=== PATIENT | male | born 1955 | race Caucasian/White ===

== ENCOUNTER → 2021-04-01 09:11 | Outpatient (CLI) | payer OTHER, SELFPAY ==
--- NOTE | 2021-04-01 | DI.MRI.S_ITS ---
PROCEDURE: MR KNEE LT WO CON INDICATIONS: Unilateral primary osteoarthritis, left knee TECHNIQUE: Noncontrast sagittal PD fast spin echo and T2 fast spin echo with fat saturation, sagittal 3-D FLASH with fat saturation; coronal T1 spin echo and PD fast spin echo with fat saturation, and axial PD fast spin echo with fat saturation through the knee. COMPARISON: None. FINDINGS: Image quality: Excellent. Menisci: Peripheral displacement of medial meniscus is seen bowing medial collateral ligament. Complex tear involving body and posterior horn of medial meniscus is noted extending to both superior and inferior articulating surfaces. There is no evidence of focal lateral meniscal tear. The meniscal root ligaments appear intact. Cruciate ligaments: The anterior and posterior cruciate ligaments appear intact. Medial structures: Moderate grade partial-thickness tear involving medial collateral ligament is seen. The posterior oblique ligament, semimembranosus tendon insertions, oblique popliteal ligament, and meniscocapsular junction appear intact. Visualized portions of the pes anserinus tendons appear normal. No abnormal bursal fluid. Lateral structures: The lateral collateral ligament, long and short heads of the biceps femoris tendon appear intact. The popliteus tendon appears normal; the popliteofibular ligament appears intact. The posterosuperior and anteroinferior popliteomeniscal fascicles appear intact. The arcuate and fabellofibular ligaments appear intact, on either side of the lateral inferior geniculate artery. Iliotibial band appears normal. Anterior structures: Nonspecific soft tissue edema and swelling along anterior aspect of patella and patella tendon is noted. The quadriceps and patellar tendons appear intact. Patellar alignment is normal. No femoral trochlear dysplasia or ventral trochlear prominence. No edema in the infrapatellar fat pad. Bones and cartilage: Moderate to severe medial femoral tibial compartment osteoarthritis and chondromalacia is noted with marrow edema seen in medial femoral condyle and adjacent medial tibial plateau. Mild chondromalacia and osteoarthritis in lateral femoral tibial compartment is seen. Nonspecific marrow edema involving weight-bearing portion of lateral femoral condyle is seen without discrete fracture line. Patellar cartilage is intact. Joint space: There is moderate to large joint effusion, no gross intra-articular loose body. There is a popliteal cyst and measures 2.1 x 2.2 x 3.7 cm in size. Normal appearing synovial plicae are incidentally noted. IMPRESSION: 1. Moderate to severe medial femoral tibial compartment osteoarthritis and chondromalacia with bony contusion involving medial femoral condyle weight-bearing portion and adjacent medial tibial plateau. Nonspecific bony contusion also seen involving weight-bearing portion of lateral femoral condyle. Mild to moderate lateral femoral tibial compartment osteoarthritis and chondromalacia is seen. 2. Moderate to large joint effusion and popliteal cyst as above. No gross intra-articular loose body. 3. Suggestion of complex tear involving body and posterior horn of medial meniscus extending to both superior and inferior articulating surfaces. No focal lateral meniscal tear. 4. Cruciate ligaments are intact. Moderate grade partial-thickness tear involving medial collateral ligament. Nonspecific soft tissue swelling and edema along anterior aspect of left knee. Dictated by: Rudolph Vivas M.D. on 04/01/2021 at 10:30 Approved by: Rudolph Vivas M.D. on 04/01/2021 at 10:34
== END ==
PROVIDERS: PCP Internal Medicine; Referring Provider Orthopaedic Surgery; Visit Provider Orthopaedic Surgery
DX: M17.12 Unilateral primary osteoarthritis, left knee (principal); S83.232A Complex tear of medial meniscus, current injury, left knee, initial encounter; M94.262 Chondromalacia, left knee; M25.462 Effusion, left knee; M71.22 Synovial cyst of popliteal space [Baker], left knee; S83.412A Sprain of medial collateral ligament of left knee, initial encounter
CPT/HCPCS: 73721

== ENCOUNTER → 2021-07-25 13:52 | Outpatient (CLI) | payer MEDICARE, SELFPAY ==
--- NOTE | 2021-07-25 | DI.ECHO.S_ITS ---
[place] +---------+ Hospital +---------+ : : [address] : : : : [id number] : : : : Phone: [phone]+ Echocardiogram Report + + :Name: KENNY CHINO Study Date: 07/25/2021 Height: 72 in : :[facility] ReadingLocation: Weight: 205 lb : : Gender: Male BSA: 2.2 m2 : :: 1955 Age: 65 yrs BP: 152/92 mmHg: :Reason For Study: NEW LEFT BUNDLE BRANCH BLOCK : :Ordering Physician: PERNELL, : :VENU Allen Performed By: Rosana Rob : :Referring: VENU GIMENEZ : + + Interpretation Summary Normal sinus rhythm with wide QRS complexes. Normal LV size, wall thickness, wall motion and left ventricular systolic function. Ejection fraction is 55-60%. Normal chamber sizes. Aortic sclerosis without stenosis. No prior study available for comparison. Procedure: A two-dimensional transthoracic echocardiogram with color flow and Doppler was performed. The study quality was technically adequate. There is no prior echocardiogram noted for this patient. The patient was in sinus rhythm with heart rates between 56-74 bpm during the exam. The patient had a bundle branch block rhythm during the exam. Left Ventricle: The left ventricle is normal in size and wall thickness. The ejection fraction is estimated to be 55-60%. Right Ventricle: The right ventricle is normal in size and function. Atria: The left atrial size is normal. Right atrial size is normal. There is no Doppler evidence for an interatrial shunt. Mitral Valve: The mitral valve leaflets are slightly calcified. There is mild mitral regurgitation. Aortic Valve: The aortic valve is trileaflet. There is mild aortic valve sclerosis. The aortic valve opens well. There is no aortic valve stenosis. No aortic regurgitation is present. Tricuspid Valve: The tricuspid valve is normal in structure and function. There is trace tricuspid regurgitation. The right ventricular systolic pressure is estimated to be at least 26 mmHg based on an estimated right atrial pressure of 3 mm Hg. Pulmonic Valve: The pulmonic valve leaflets are thin and pliable; valve motion is normal. There is no pulmonic valvular regurgitation. Great Vessels: The aortic root is normal size. The ascending aorta could not be visualized. The IVC is of normal diameter and collapses greater than 50% with a sniff. This suggests a low right atrial pressure of 3 mm Hg. Pericardium/ Pleura There is no pericardial effusion. There is no pleural effusion. MMode/2D Measurements & Calculations LVIDd: 5.2 cm LVOT diam: 2.1 cm LVIDs: 3.7 cm Ao root diam: 3.7 cm FS: 28.1 % Ao Arch Diam (Prox Trans): 2.8 cm IVSd: 0.86 cm LVPWd: 0.72 cm LV horowitz. diameter/BSA (cm/m^2): 2.4 LV sys. diameter/BSA (cm/m^2): 1.7 LA A2 area: 19.3 cm2 RA long axis: 4.5 cm LA A4 area: 13.6 cm2 RA area: 16.5 cm2 LA length (vol): 5.0 cm RA vol: 51.7 ml LA vol: 44.3 ml RA : 24.0 ml/m2 LA vol index: 20.6 ml/m2 IVC diam: 1.6 cm RVD1 (basal): 3.7 cm RVD2 (mid): 3.3 cm TAPSE: 3.0 cm Doppler Measurements & Calculations Ao V2 max: 137.5 cm/sec LVOT Max Luis: 100.3 cm/sec Ao V2 mean: 102.0 cm/sec LV V1 max P.0 mmHg Ao max P.6 mmHg LV V1 VTI: 21.9 cm Ao mean P.5 mmHg PAVEL(I,D): 2.5 cm2 Ao V2 VTI: 31.8 cm PAVEL(V,D): 2.6 cm2 sev ratio: 0.69 PAVEL indexed to BSA (cm^2/m^2): 1.1 MV E max luis: 60.3 cm/sec TR max luis: 241.1 cm/sec MV A max luis: 44.9 cm/sec TR max P.3 mmHg MV E/A: 1.3 PA V2 max: 117.4 cm/sec Med Peak E' Luis: 8.0 cm/sec PA V2 mean: 73.1 cm/sec E/E' med: 7.6 PA mean P.5 mmHg Lat Peak E' Luis: 8.1 cm/sec PA pr(Accel): 39.6 mmHg E/E' lat: 7.4 E/e' average: 7.5 MV dec time: 0.22 sec SV(LVOT): 78.1 ml Electronically signed by: Marimar Oneill M.D. on Reading Physician:07/25/2021 07:44 PM
== END ==
PROVIDERS: PCP Internal Medicine; Referring Provider Internal Medicine; Visit Provider Internal Medicine
DX: I08.0 Rheumatic disorders of both mitral and aortic valves (principal); I44.7 Left bundle-branch block, unspecified
CPT/HCPCS: 93306

== ENCOUNTER → 2021-09-04 15:19 | Outpatient (CLI) | payer MEDICARE, SELFPAY ==
[2021-09-04 16:36] LABS: COVID19 -Nasal RAPID Negative (Negative)
== END ==
PROVIDERS: PCP Internal Medicine; Visit Provider Nurse Practitioner Family
DX: Z20.822 Contact with and (suspected) exposure to COVID-19 (principal)
CPT/HCPCS: 87635; C9803

== ENCOUNTER 2021-09-05 06:25 | Day surgery (SDC) | payer MEDICARE, SELFPAY ==
[2021-08-22 08:39] VITALS: BMI 28.5
[2021-09-05] VITALS (12 sets, daily range): BP systolic 108–145; BP diastolic 58–92; PULSE 62–88; RESP 11–16; TEMP 35.6–36.6; O2SAT 92–98; BMI 28.5
[2021-09-05] MEDS: ACETAMINOPHEN 325 MG TABLET 975 MG PO (06:47)
[2021-09-05] MEDS: CELECOXIB 200 MG CAPSULE PO (06:48)
[2021-09-05] MEDS: VANCOMYCIN 1,000 MG/200 ML PIGGYBACK 200 MG IV (06:48)
[2021-09-05] MEDS: LACTATED RINGERS 1,000 ML 42 ML IV ×2 (07:21→10:15)
--- NOTE | 2021-09-05 07:44 | PM.PREOP ---
Pre-operative Note COVID-19 COVID-19 status: Negative Interval Note History & Physical reviewed/Exam performed by Physician: Yes Changes to H&P: No
--- NOTE | 2021-09-05 08:00 | DI.RAD.S_ITS ---
PROCEDURE: XR KNEE LT 1TO2V INDICATIONS: prosthesis placement TECHNIQUE: 2 view(s) of the knee acquired. COMPARISON: None. FINDINGS: Bones: Patient is status post knee joint arthroplasty. Hardware components are in expected positions. Visualized bony structures are intact. Soft tissues: Overlying postoperative changes are noted. IMPRESSION: Postop changes from left total knee arthroplasty with anatomic left knee alignment. Dictated by: Rudolph Vivas M.D. on 09/05/2021 at 11:09 Approved by: Rudolph Vivas M.D. on 09/05/2021 at 11:09
[2021-09-05] MEDS: CEFAZOLIN 2 GM/20 ML SYRINGE IV ×3 (08:10→23:34)
[2021-09-05] MEDS: TRANEXAMIC ACID 1,000 MG VIAL 1000 MG INJ ×2 (08:15→09:57)
--- NOTE | 2021-09-05 08:24 | SUR.OPER ---
Supine on padded OR bed. Pillow under head, arms secured on padded armboards <90 degree abduction. Safety belt across torso. Non-operative leg secured with tape over blanket over lower leg. Operative leg secured in De[employer]o positioner. Foam padded brace at thigh of operative leg.
[2021-09-05] MEDS: BUPIVACAINE 0.25% (PF) 60 ML, EPINEPHrine 0.3 MG INJ (08:34)
[2021-09-05] MEDS: BUPIVACAINE LIPOSOME 266 MG/20 ML VIAL INJ (09:52)
--- NOTE | 2021-09-05 10:54 | PM.OP.1 ---
Operative Date/Time/Diagnoses Date of procedure: 09/05/21 Time of procedure: 08:00 Pre-op diagnosis: Severe left knee osteoarthritis Post-op diagnosis: same Procedure & Clinicians Procedure: Left total knee arthroplasty Same procedure as scheduled: Yes Indications: The patient has had progressively worsening left knee pain with radiographic changes consistent with arthritis. Non-operative management has failed and the patient has requested total knee replacement. The risks, benefits and alternatives to surgery were discussed with the patient prior to proceeding. Risks discussed included, but were not limited to, failure to relieve pain, stiffness, infection, nerve damage, deep venous thrombosis, pulmonary embolism, stroke, coma, heart attack, permanent paralysis and , as well as the potential need for eventual revision of the prosthetic. Surgeon: Anamaria Coles Warehouse Shift Supervisor: Poornima Akhtar Anesthesia Type: General and Spinal Operative Notes Findings: Severe left knee osteoarthritis, adequate stability Closure Type: primary Specimen(s): none sent Prosthetic devices, grafts, tissues, transplants, or devices: [employer] [facility] BCS 2 size 8 femur, size 6 tibia, +10 poly, 35 mm oval patella Estimated Blood Loss (mL): 250 Blood products transfused: none Tourniquet time (min): 93 Procedure in detail: The patient was seen in the pre-operative area, where the patient identified the left knee as the operative site and this was marked with my initials. The patient received pre-operative antibiotics, and was taken to the operating room and placed on the operative table in the supine position. After satisfactory anesthesia, a maritime guard out was performed. The left leg was encircled with a tourniquet about the proximal thigh, and the leg was prepared from the toes to the tourniquet with ChloroPrep in the usual fashion and draped through sterile drapes. The leg was elevated and exsanguinated with Eschmark bandage and the tourniquet inflated to [250] mmHg pressure. The knee was approached through an approximately 18 cm incision centered over the patella and carried into the knee through a medial parapatellar arthrotomy. A portion of the medial and lateral meniscus was resected. Soft tissue was carefully mobilized around the patella the patella was measured with a caliper. Bone was resected from the patella and the patellar height was reconstituted with up an appropriate sized patellar component. It was quite oval on an oval patella was selected. A cover was then placed on the patella. A small amount of additional medial and lateral meniscus was resected. The distal femur was cut at 5?. A [+2] cut was used. It looked like an appropriate distal femoral cut and the cut was made without difficulty. An extramedullary guide was used for the tibial cut. 10 mm was resected off the least affected side.The tibia was prepared. The rotation was assessed. The patient was placed in extension residual medial and lateral meniscus as well as any residual bone was carefully resected. [No] additional tibia was resected. Hemostasis was achieved especially posteriorly. Additional local was injected into the posterior capsule. The extension gap was assessed and additional releases for gap balancing were performed as necessary. It was checked with the gap wearing apparel shaker. The femoral component was trial was placed and the notch was finished. The rotation was assessed and the appropriate size femoral guide was placed on the distal femur and finishing cuts were made. There was no evidence of notching. The anterior, posterior and chamfer cuts were then made. The posterior osteophytes and soft tissues were then removed. The posterior capsule was injected with part of a mixture of 60 ml 0.25% Marcaine mixed with 20 ml Exparel for post operative pain control. The remainder of this mixture was injected into the capsule and subcutaneous tissues during cement curing. The tibial and femoral components were then placed and the knee placed through a range of motion. Range of motion was [0-130], with good stability throughout the range. The trials were then removed, and the tibia was finished. There was just slight tightness in the medial compartment in full extension. Used a 18 gauge spinal needle to partially release a portion of the medial collateral ligament. At that point good balance was achieved. The bone was prepared with pulsatile lavage, and dried with a sponge. Cement was applied and the final prosthetics placed. Excess cement was removed during and after cement curing. A brief Betadine soak was performed. After confirming there was no extruded cement posteriorly, the final tibial insert was placed. The knee was copiously irrigated and the tourniquet deflated. Hemostasis was obtained with the Bovie cautery. The capsule was closed with interrupted nonabsorbable suture. The subcutaneous layer was closed with barbed sutures, and the skin with a running 3-0 V-Lock suture and Surgical glue. An Aquacel Ag dressing was applied and the patient was taken to recovery having tolerated the procedure well. Complications: none Post-operative Condition: stable Disposition: Acute Care Plan for aftercare: The patient will be maintained on a standard total knee replacement protocol with weight bearing as tolerated. The patient will receive aspirin and sequential compression devices for DVT prophylaxis. The patient will be discharged home when safe for the home environment.
[2021-09-05] MEDS: LACTATED RINGERS 1,000 ML 100 ML IV ×2 (11:36→21:29)
[2021-09-05] MEDS: IBUPROFEN 400 MG TABLET PO ×3 (13:39→21:18)
--- NOTE | 2021-09-05 14:59 | PC.NURSE ---
attempted to void while standing up, patient started getting light headed, sweating, pale, BP 81/54, HR 65. Place pt back to bed in supine position, BP 102/60 HR 52. Bladder scan 800cc+. Notified Dr. Coles while she was in the patient's room. Verbal order to place coude catheter and leave it in.
--- NOTE | 2021-09-05 15:05 | PT.IPTN ---
Current Diagnoses Unilateral primary osteoarthritis, left knee (09/05/21) Surgery Performed Operation Date: 09/05/21 07:45 Actual Procedures p Total Knee Arthroplasty(Left) - Anamaria Coles MD Physical Therapy Treatment Note M3 PT-IP Subjective Start: 09/05/21 16:19 Freq: NEEDED Status: Active Protocol: Document 09/05/21 15:05 AB (Rec: 09/05/21 16:26 AB [id number]) Subjective Physical Therapy Visit Type Type Administrative Note Notes nurse informed that pt's BP decreased in standing to 81/54 when they assisted pt and is not ready for PT. talked with pt and pt provided PLOF and d/c plan. post-op folder provided to pt.
[2021-09-05] MEDS: ACETAMINOPHEN 325 MG TABLET 650 MG PO ×2 (15:38→21:18)
--- NOTE | 2021-09-05 16:51 | DIET.CONS ---
Dietary Consultation Note RD Note: Pt alerted Unit Host he is vegetarian and eats gluten free diet. Pt has other food preferences but reports just vegetarian/GF would be adequate this hospital stay. Kitchen alerted to this preference and diet order updated accordingly. Electronically Signed by: Neha Daly 09/05/21 16:51 Clinical Dietitian [address] [id number]
[2021-09-05] MEDS: ASPIRIN EC 81 MG TABLET PO (21:18)
[2021-09-05] MEDS: DOCUSATE 100 MG CAPSULE PO (21:18)
[2021-09-06 04:20] VITALS: BP 126/77; PULSE 62; RESP 12; TEMP 36.6; O2SAT 96
[2021-09-06] MEDS: IBUPROFEN 400 MG TABLET PO ×2 (04:50→09:41)
[2021-09-06 06:06] LABS: Hematocrit 40.7 % (41-53); Hemoglobin 13.8 g/dL (13.5-17.5)
[2021-09-06] MEDS: DOCUSATE 100 MG CAPSULE PO (09:41)
[2021-09-06] MEDS: valACYclovir 500 MG TABLET PO (09:41)
[2021-09-06] MEDS: ASPIRIN EC 81 MG TABLET PO (09:41)
[2021-09-06] MEDS: LEVOTHYROXINE 25 MCG TABLET PO (09:42)
[2021-09-06] MEDS: ACETAMINOPHEN 325 MG TABLET 650 MG PO (09:42)
--- NOTE | 2021-09-06 09:45 | PT.IIE ---
Current Diagnoses Unilateral primary osteoarthritis, left knee (09/05/21) Presence of unspecified artificial knee joint (09/05/21) Surgery Performed Operation Date: 09/05/21 07:45 Actual Procedures p Total Knee Arthroplasty(Left) - Anamaria Coles MD Medical History (Last Updated 07/05/21 @ 10:00 by Lyssa Bravo RN) BPH (benign prostatic hyperplasia) Chronic bilateral low back pain Dyslipidemia Hypothyroidism LBBB (left bundle branch block) Nephrolithiasis Pre-diabetes Physical Therapy Inpatient Evaluation/Re-Eval M1 PT/OT-IP Prior Functional Status Start: 09/05/21 16:19 Freq: NEEDED Status: Active Protocol: Document 09/06/21 09:45 AB (Rec: 09/06/21 14:19 AB [id number]) Medical Review Prior Functional Status Communication able to make needs known Mobility and Gait pt stated that he is modified independent with all mobilities and ambulation wihtout AD but has been using a SPC for ~ 3-4 months due to knee pain Social History Household Members none Living Arrangements House Number of Stairs To Enter/Railing? pt plans to go to is friends' house upon d/c and will not have stairs to enter Home Environment Ramp Home Equipment Front Wheel Walker,Straight Cane Additional Social History Comment pt plans to go to his friends' house (meg/danni) upon d/c and friends will be able to assist pt; pt will be staying on their daylight basement with a ramp to enter M2 PT-IP Current Condition Start: 09/05/21 16:19 Freq: NEEDED Status: Active Protocol: Document 09/06/21 09:45 AB (Rec: 09/06/21 14:19 AB [email or web address]) Physical Therapy Current Condition Current Condition Evaluation Date 09/06/21 Treatment Diagnosis s/p L TKA; difficulty in walking Onset Date 09/05/21 M3 PT-IP Subjective Start: 09/05/21 16:19 Freq: NEEDED Status: Active Protocol: Document 09/06/21 09:45 AB (Rec: 09/06/21 14:19 AB [email or web address]) Subjective Physical Therapy Visit Type Type Initial Evaluation Visit Start Time 11:45 Visit Stop Time 12:35 Total Visit Minutes 50 Number of EXHAUST WORKER Visits 0 Physical Therapy Visit Comments Patient Comments agreeable to do PT Therapy Pain Assessment Pain When Pain Assessed At Rest Pain Present Pain Present Pain Reported Location Left Knee Intensity 1 Scale Used Numeric (0 - 10) Pain Management Techniques Apply Cold,Distraction, Elevation,Re-positioning, Timing of Activity with Medications M4 PT-IP Mobility and Gait Start: 09/05/21 16:19 Freq: NEEDED Status: Active Protocol: Document 09/06/21 09:45 AB (Rec: 09/06/21 14:19 AB [email or web address]) PT-Bed Mobility Assessment Supine to Sit Supine to Sit Standby Assistance PT-Transfer Assessment Sit to and From Stand Sit to and from Stand Standby Assistance,Contact Guard Assistance,1 Person Assistance,Use of Upper Extremities Equipment Transfer Assistive Device Gait Belt,Front Wheeled Walker Orthotic/Prosthetic Devices or Brace: No Transfers Transfer Destination Chair Transfer Technique ambulated Transfer Ability Level of Assist Standby Assistance,Contact Guard Assistance,1 Person Assistance,Use of Upper Extremities Comments Mobility Comments BP in supine: 121/65 . pt completed supine to sit SBA. c/o dizziness. BP: 154/86. completed sit to stand CGA and ambulated in room using FWW SBA to CGA ~ 20 ft. pt sat on chair. BP checked: 133/83. pt agreed to ambulate in the hallway. completed sit to stand SBA and ambulated in the hallway using FWW SBA ~ 125 ft. pt ambulated back to his room and sat back on chair. positioned pt on chair. ice pack provided. call light and table placed within reach. Gait Assessment Gait Gait Assistance Required: Standby Assistance,Contact Guard Assist Distance (Feet) 125 Able to Maintain Weight Bearing Status Yes During Gait Assistive Devices Assistive Device Gait Belt,Front Wheeled Walker Orthotic/Prosthetic Devices or Brace: No Gait Deviations General Gait Pattern Antalgic,Decreased Stride Length,Decreased Feet Clearance Factors Limiting Gait Function Factors Limiting Gait Function Decreased Activity Tolerance, Decreased Strength,Limited Range of Motion,Pain,Poor Balance,Poor Safety Awareness PT-Balance Assessment Sitting Balance and Reactions Static Sitting Balance Ability Good Dynamic Sitting Balance Ability Good Standing Balance and Reactions Static Standing Balance Ability Fair Dynamic Standing Balance Ability Fair Device Used FWW M5 PT-IP Objective Assessments Start: 09/05/21 16:19 Freq: NEEDED Status: Active Protocol: Document 09/06/21 09:45 AB (Rec: 09/06/21 14:19 AB [email or web address]) Orientation Orientation/Cognition Level of Alertness Alert Orientation Name,Age,Birthday,Month,Date, Year,Day of Week,Place, Situation Language Function Ability No Deficits Noted Safety Awareness Understands Safety Issues Memory Description No Deficits Noted Gross Range of Motion Lower Extremity ROM Impairments L knee flexion: ~60 deg Strength Lower Extremity Strength Assessment Left Impaired Hip 4/5 Knee 4-/5 Coordination Assessment Gross Coordination Gross Coordination WNL Sensation Assessment Sensation Gross Sensation WNL Muscle Tone Muscle Tone WNL Yes M6 PT-IP Treatment Start: 09/05/21 16:19 Freq: NEEDED Status: Active Protocol: Document 09/06/21 09:45 AB (Rec: 09/06/21 14:19 AB [email or web address]) Physical Therapy Treatment Exercises Exercises Heel Slides Education Education Provided Precautions,Weight Bearing Status,Post-Op Packet,Safety M7 PT-IP Assessment and Plan Start: 09/05/21 16:19 Freq: NEEDED Status: Active Protocol: Document 09/06/21 09:45 AB (Rec: 09/06/21 14:19 AB [email or web address]) PT Summary Assessment and Plan Potential Rehabilitation Potential Good Status of Condition at Evaluation Stable Summary Impairments Pain,ROM,Strength,Balance, Coordination,Sensation,Tone, Cognition,Bed Mobility, Transfers,Gait,Activity Tolerance Assessment Summary pt requiring SBA to CGA with mobility using FWW. pt plans to stay at his friend's house and his friend will assist him . pt has outpt PT scheduled. pt may go home when medically stable. Goals Bed Mobility Goal Independent Transfer Goal Independent,Front Wheeled Walker Gait Goal Independent,Front Wheel Walker Gait Distance 300 Days to Meet Goals 3 Frequency of Treatment Frequency Of Treatment Twice a Day Treatment Plan Physical Therapy Treatment Plan Bed Mobility Training,Transfer Training,Gait Training, Therapeutic Exercise,Balance Retraining,Post Op Education, Discharge Planning,Hot or Cold Pack,Neuromuscular Re-ed, Coordination Retraining,Manual Therapy Weight Bearing Status Weight Bearing Status Weight Bear as Tolerated Allowed Weight Bearing Amount (enter % LLE WBAT or #) (%) Recommendations To Nursing Amount of Assist Needed 1 Person Assist Discharge Recommendations PT Discharge Recommendations Home with Assistance, Outpatient PT Transportation Needs at Discharge Private Vehicle
[2021-09-06 10:00] VITALS: BP 142/71; PULSE 75; RESP 16; TEMP 36.2; O2SAT 94
--- NOTE | 2021-09-06 10:29 | P.DS_ITS ---
History of Present Illness History of Present Illness Date Patient Seen: 09/06/21 Time Patient Seen: 09:00 Chief complaint: OPB Narrative: Operative Date/Time/Diagnoses Date of procedure: 09/05/21 Time of procedure: 08:00 Pre-op diagnosis: Severe left knee osteoarthritis Post-op diagnosis: same Procedure & Clinicians Procedure: Left total knee arthroplasty Same procedure as scheduled: Yes Indications: The patient has had progressively worsening left knee pain with radiographic changes consistent with arthritis. Non-operative management has failed and the patient has requested total knee replacement. The risks, benefits and alternatives to surgery were discussed with the patient prior to proceeding. Risks discussed included, but were not limited to, failure to relieve pain, stiffness, infection, nerve damage, deep venous thrombosis, pulmonary embolism, stroke, coma, heart attack, permanent paralysis and , as well as the potential need for eventual revision of the prosthetic. Surgeon: Anamaria Coles Underwriting Support Manager: Poornima Akhtar Anesthesia Type: General and Spinal Operative Notes Findings: Severe left knee osteoarthritis, adequate stability Closure Type: primary Specimen(s): none sent Prosthetic devices, grafts, tissues, transplants, or devices: Coles and Nephew Yvette BCS 2 size 8 femur, size 6 tibia, +10 poly, 35 mm oval patella Estimated Blood Loss (mL): 250 Blood products transfused: none Tourniquet time (min): 93 Discharge Providers Provider Date of admission: 09/05/2021 Discharge Date: 09/06/21 Primary care physician: Hema Green MD Consults: 09/05/21 06:00 Consult to Anesthesiology Routine Comment: Consulting Provider: Anesthesiologist Reason for consultation: Regional block for post operative pain control 09/05/21 11:03 Consult to Discharge Planning Routine Comment: Consult to Physical Therapy Evaluate & Treat Comment: Physician Instructions: postop TKA protocol Consult to Respiratory Therapy Evaluate & Treat Comment: Physician Instructions: Evaluate and treat Discharge provider: Poornima Akhtar PA-C Summary Hospital Course Discharge Diagnosis: s/p L TKA Hospital Course: Mr Iniguez's hospital course was significant for an episode of orthostatic hypotension as well as postoperative urinary retention, which required placement of a Jain catheter. On POD# 1, the catheter was removed. By time of dischar ge, he was eating and voiding independently. He was evaluated by PT during his stay. He was feeling well and wanted to discharge to his friends' home. Exam Vital Signs (past 8 hours): - 03/18/22 04:20 Temperature 97.9 F Pulse Rate 62 Respiratory Rate 12 Blood Pressure 126/77 Pulse Oximetry 96 Oxygen Delivery Method Room Air Oxygen Flow Rate 0 Narrative Exam Narrative: 5/5 strength in hip flexors, quadriceps, hamstrings, DF, PF, EHL bilaterally. Sensation to light touch intact throughout BLE. Calves soft, compressible, nontender and without palpable cords or masses. Const General: cooperative and healthy appearing Orientation: alert, awake and oriented x3 Objective Labs Result Diagrams: 09/06/21 05:25 Labs: Laboratory Results - last 24 hr 09/06/21 05:25 Hgb 13.8 Hct 40.7 L PFSH Medical History (Updated 07/05/21 @ 10:00 by Lyssa Bravo RN) BPH (benign prostatic hyperplasia) Chronic bilateral low back pain Dyslipidemia Hypothyroidism LBBB (left bundle branch block) Nephrolithiasis Pre-diabetes Surgical History (Updated 09/06/21 @ 10:26 by Poornima Akhtar PA-C) History of total right knee replacement Hx of appendectomy Hx of lithotripsy (2018) Hx of transurethral resection of prostate Social History household members: none Smoking Status: Never smoker alcohol intake: current Discharge Assessment & Plan Assessment and Plan Assessment: POD# 1 s/p left total knee arthroplasty Plan of Treatment: Discharge home w/ multimodal pain management, ASA BID for VTE prophylaxis, outpt PT Discharge Plan Discharge Plan Patient Disposition: Home Discharge orders & Medications Discharge Orders: Discharge (Order); Ordered 09/06/21 Ordered By: Poornima Akhtar Prescriptions: New acetaminophen 325 mg Tablet 650 mg PO TID Qty: 90 2RF aspirin 81 mg Tablet,Delayed Release (Dr/Ec) 81 mg PO BID Qty: 90 0RF docusate sodium 100 mg Capsule 100 mg PO BID PRN (Reason: constipation) Qty: 60 2RF ibuprofen 400 mg Tablet 400 mg PO Q4HR Qty: 180 2RF oxycodone 5 mg Tablet 5 mg PO Q4H PRN (Reason: pain, severe) Qty: 60 0RF Continued valacyclovir 500 mg Tablet 500 mg PO DAILY 0RF levothyroxine 25 mcg Tablet 25 mcg PO DAILY 0RF Follow up/Referrals: Hema Green MD [Primary Care Provider] - Anamaria Coles MD [Physician] - As previously scheduled (Follow up with Dr Coles on 09/20/2021 @ 3:00 pm at [facility] office in [place].) Diet/Activity/Treatments Diet: Diet as Tolerated Activity: Walk frequently! Cold/Heat Therapy: Ice to knee as needed for pain. Skin/Wound/Dressing Care Report to your healthcare provider any signs of infection, such as:: chills, fever, night sweats, increased pain, unusual drainage and unusual redness Dressing: May remove TK wrap and shower. Leave dressing in place until follow up appointment. No bathing or otherwise soaking incision. Visit Report/Discharge Packet Instructions: DI for Knee Replacement Stand Alone Forms: Surgery Discharge Discharge Data Primary Care Provider: Hema Green Attending Provider: Anamaria Coles VTE Deep Vein Thrombosis/Pulmonary Embolism Present on Admission: No
--- NOTE | 2021-09-06 10:36 | PC.NURSE ---
Addendum entered by Noelle Cartagena R.N. 09/06/21 14:14: Patient to discharge home now. Friend is here and he is dressed and iv has been taken out. Addendum entered by Noelle Cartagena R.N. 09/06/21 13:41: Patient voided 350 of clear yellow urine after his abraham catheter was taken out, not his urinal. (Corrective Note). Addendum entered by Noelle Cartagena R.N. 09/06/21 13:30: Patient voided 350 after his urinal taken out Original Note: Assess- Patient is alert and oriented x3. He is a one person assist to get up to the bsc. Dressing to l.leg with aquacel and elias wrap, cdi. PPx2. Patient is going to discharge home later today.
--- NOTE | 2021-09-06 11:59 | CM.IDA ---
Initial DCP Assessment Note Pt is a 66 yo male, resident of [place] , now POD#1 from left knee surgery by Dr Coles PCP: Hema Green Payer: [employer] Reviewed chart, pt discussed in multidisciplinary rounds this morning. Patient is eager to return home w/family to assist; awaiting clearance from therapy team. Patient has had post operative hypotension, however, has been discharged by Ortho team. No needs expected from DC planning team although will remain available in case this changes today. JULAINNA Poon Discharge Planning/Care Management CM Discharge Assessment Start: 09/06/21 11:54 Freq: Status: Active Protocol: Document 09/06/21 11:55 MARIO (Rec: 09/06/21 11:58 MARIO [id number]) Discharge Planning Assessment Assigned [employer] JULIANNA Cameron DPOA/Assigned Designee Name Malika (sister) Michael ( brother in-law) Brad (brother) Contact Information Malika: [phone] Brad: [phone] Advance Directives? Yes Advance Directives on File No History Provided By Patient,Medical Record Prior Living Arrangements Apartment/Condo Household Members none Type of transporation used prior to Drives own vehicle admit Independent with ADL's Yes Is patient alert and oriented? Yes Barriers to Discharge No Comment Home today as long as he is cleared by therapy team for return home Discharge Plan Home Transportation Arrangement Friend/family Referrals Initiated None needed
== END 2021-09-06 14:22 | disposition home or self-care (01) ==
LOC: OR 06:26 → AC 06:27
PROVIDERS: PCP Internal Medicine; Referring Provider Orthopaedic Surgery; Visit Provider Orthopaedic Surgery
PROC: 0SRD0JZ Replacement of Left Knee Joint with Synthetic Substitute, Open Approach (ICD-10-PCS; CPT 27447; principal; 2021-09-05 07:45)
DX: M17.12 Unilateral primary osteoarthritis, left knee (principal); E03.9 Hypothyroidism, unspecified; R73.03 Prediabetes; E78.5 Hyperlipidemia, unspecified
CPT/HCPCS: 27447; 36415; 73560; 85014; 85018; 97116; 97161; C1776; C1713; C9290; J0171; J0690; J1100; J2250; J2405; J2704; J3010

== ENCOUNTER → 2024-05-05 15:20 | Outpatient (CLI) | payer MEDICARE, SELFPAY ==
[2021-09-05 13:03] VITALS: BMI 28.5
--- NOTE | 2024-05-05 15:23 | DI.RAD.S_ITS ---
PROCEDURE: XR KUB INDICATIONS: Rule out recurrent stone TECHNIQUE: One view of the abdomen acquired. COMPARISON: [facility], CT, CT KUB, 07/08/2023, 18:52. Findings and impression: No definite calcified stones project over the renal fossa, which are somewhat obscured by bowel gas. Probable right pelvic phlebolith. A density projects over the right iliac fossa, location indeterminate, possibly within the cecum. Osseous degenerative changes. Increased fecal loading. Dictated by: Fabio Scott M.D. on 05/05/2024 at 16:33 Approved by: Fabio Scott M.D. on 05/05/2024 at 16:34
[2024-05-05 18:05] LABS: Testosterone 270 ng/dL (71.8-623)
[2024-05-06 16:12] LABS: PSA Free % 31.1 % (.); PSA, Total 7.2 ng/mL (0.0-4.0)
== END ==
PROVIDERS: PCP Internal Medicine; Referring Provider Urology; Visit Provider Urology
DX: R68.82 Decreased libido (principal); R97.20 Elevated prostate specific antigen [PSA]; Z87.442 Personal history of urinary calculi
CPT/HCPCS: 36415; 74018; 84153; 84154; 84403

== ENCOUNTER → 2024-06-09 16:25 | Outpatient (CLI) | payer MEDICARE, SELFPAY ==
[2021-09-05 13:03] VITALS: BMI 28.5
== END ==
PROVIDERS: PCP Internal Medicine; Visit Provider Urology
DX: R31.0 Gross hematuria (principal); N40.1 Benign prostatic hyperplasia with lower urinary tract symptoms; N13.8 Other obstructive and reflux uropathy
CPT/HCPCS: 87086

== ENCOUNTER → 2024-06-27 16:34 | Outpatient (CLI) | payer MEDICARE, OTHER, SELFPAY ==
[2021-09-05 13:03] VITALS: BMI 28.5
--- NOTE | 2024-06-27 16:36 | DI.US.S_ITS ---
PROCEDURE: US SCROTUM INDICATIONS: testicular pain TECHNIQUE: Real-time scanning was performed of the scrotum and testicles, with image documentation. Color and pulse Doppler interrogation was performed of both testicles. COMPARISON: None. FINDINGS: Right: Testicle is normal in size at 5.4 x 3.9 x 2.8 cm, and homogenous in echotexture. Epididymis is normal in overall size and morphology. No hydrocele or varicoceles. Overlying scrotal skin is normal in thickness. Left: Testicle is normal in size at 5.4 x 3.1 x 2.6 cm, and homogeneous in echotexture. Epididymis is normal in overall size and morphology. No hydrocele or varicoceles. Overlying scrotal skin is normal in thickness. Doppler: Color and pulse Doppler demonstrate normal and symmetric arterial flow in both testicles. IMPRESSION: Bilateral testicles without acute sonographic abnormalities. No evidence for testicular torsion. No suspicious mass lesions. No findings to suggest epididymitis or orchitis. Dictated by: Obey Beaver M.D. on 06/27/2024 at 17:40 Approved by: Obey Beaver M.D. on 06/27/2024 at 17:41
[2024-06-27 17:49] LABS: Appearance Urine UA CLEAR; Bilirubin Urine UA NEGATIVE (NEGATIVE); Color Urine UA YELLOW; Glucose Urine UA NEGATIVE (Negative); Ketones Urine UA NEGATIVE (NEGATIVE); Leukocyte Esterase Urine UA NEGATIVE (NEGATIVE); Nitrite Urine UA NEGATIVE (Negative); Occult Blood Urine UA NEGATIVE (Negative); Protein Urine UA NEGATIVE (Negative); Specific Gravity Urine UA <=1.005 (1.000-1.035); Urobilinogen Urine UA 0.2 E.U./dL (0.2); pH Urine UA 6.5 (4.5-8.0)
[2024-06-27 17:57] LABS: Bacteria Urine None Seen; Culture Indicated Urine Cult Not Indicated; RBC Urine None Seen (0-5/HPF); Squamous Epithelial Cell Urine None Seen (0-5/HPF); Urine Volume 10mL (spun); WBC Urine 1-5/HPF (0-5/HPF)
== END ==
PROVIDERS: PCP Internal Medicine; Referring Provider Urology; Visit Provider Urology
DX: N45.1 Epididymitis (principal); N40.1 Benign prostatic hyperplasia with lower urinary tract symptoms; N13.8 Other obstructive and reflux uropathy
CPT/HCPCS: 76870; 81001; 93975

== ENCOUNTER → 2024-12-26 16:07 | Outpatient (CLI) | payer MEDICARE, OTHER, SELFPAY ==
[2021-09-05 13:03] VITALS: BMI 28.5
== END ==
PROVIDERS: PCP Internal Medicine; Visit Provider Urology
DX: N40.1 Benign prostatic hyperplasia with lower urinary tract symptoms (principal); N13.8 Other obstructive and reflux uropathy; R97.20 Elevated prostate specific antigen [PSA]; Z98.890 Other specified postprocedural states
CPT/HCPCS: 81002; 87077; 87086; 87186; 99214

== ENCOUNTER 2025-01-03 06:23 | Day surgery (SDC) | payer MEDICARE, OTHER, SELFPAY ==
[2021-09-05 13:03] VITALS: BMI 28.5
[2024-12-29 09:12] VITALS: BMI 26.7
[2025-01-03] VITALS (9 sets, daily range): BP systolic 100–141; BP diastolic 67–78; PULSE 65–83; RESP 10–20; TEMP 36.1; O2SAT 92–99; BMI 25.5
--- NOTE | 2025-01-03 | PATH_ITS ---
[facility] Accession Number: [id number] No. of containers..01 Tissue . 01 Material submitted: . prostate - PROSTATE CHIPS . 01 Diagnosis: PROSTATE CHIPS (WEIGHT 19 GRAMS): Benign prostate parenchyma with stromal and glandular hyperplasia. MRV 01/13/2025 1617 Local . 01 Electronically signed: . Deb Pugh MD, Pathologist NPI- [id number] . 01 Gross description: . Received in formalin with two identifiers and prostate chips, are multiple tyler soft tissue fragments admixed with a moderate amount of hemorrhagic material weighing 19 grams and aggregating to 8.5 x 7.4 x 2.0 cm. Approximately 50% of the specimen by weight is submitted in A1-A8. ([id number]) /MRV 01/11/2025 1338 Local . 01 Pathologist provided ICD-10: N40.1 . 01 CPT . 491513 Specimen Comment: A courtesy copy of this report has been sent to [facility] Pathology Performed at: [address] [id number] MD Jenaro Whitaker MD Phone: [phone]
[2025-01-03] MEDS: levoFLOXacin 500 MG/100 ML PIGGYBACK 100 MG IV (07:00)
[2025-01-03] MEDS: LACTATED RINGERS 1,000 ML 21 ML IV (07:02)
--- NOTE | 2025-01-03 07:35 | PM.PREOP ---
Pre-operative Note COVID-19 COVID-19 status: Not tested Interval Note History & Physical reviewed/Exam performed by Physician: Yes Changes to H&P: No
--- NOTE | 2025-01-03 08:14 | SUR.OPER ---
Lithotomy on padded OR bed, head on pillow, arms secured on padded arm boards at <90 degrees abduction. Legs secured in padded yellow fins stirrups.
--- NOTE | 2025-01-03 09:48 | P.OP_ITS ---
Operative Date/Time/Diagnoses Date of procedure: 01/03/25 Time of procedure: 08:00 Pre-op diagnosis: Benign prostatic hyperplasia with lower urinary tract symptoms Post-op diagnosis: same Procedure & Clinicians Procedure: Cystoscopy Aquablation Same procedure(s) as scheduled: Yes Indications: 69 y/o M noted to have symptoms consistent w/ BPH and LUTS w/ a prior TURP roughly 10 years ago that are currently managed w/ Tamsulosin 0.8mg and Finasteride 5mg daily. Discussed treatment options to include observation vs proceeding with an Aquablation procedure (already completed his lower urinary tract evaluation with Dr. Garrett in early 2024). Discussed that he otherwise would be a candidate for Aquablation. Discussed risks of the procedure to include but not limited to pain, bleeding, infection, injury to urethra/bladder/either ureteral orifice, clot retention, irritative voiding symptoms for several months following the procedure, urinary incontinence, erectile dysfunction, retrograde ejaculation, need for open emergent repair of any bladder or ureteral injuries, urethral stricture or bladder neck contracture development, need for repeat procedures. Surgeon: Bharat Ness Click Yes if Unassisted: Yes Anesthesia Type: General Operative Notes Findings: Coaptating lateral prostatic lobes, no intravesical median lobe, moderate sized stone within prostatic urethra Closure Type: not applicable Specimen(s): other (prostate chips, bladder stone) Applied: catheter Estimated Blood Loss (mL): 50 Blood products transfused: none Procedure in detail: After informed consent was obtained, the patient was identified brought to the operating room where he was placed in his supine position on the table.? Once there anesthesia was induced and maintained.? Ensuring an adequate level of anesthesia the patient was transitioned to the lithotomy position where after time-out he was prepped.? After prepping, ensuring an adequate level of anesthesia, administration IV antibiotics and time-out 60 cc of ultrasound gel was instilled within the rectum and the ultrasound probe which had been attached to the TRUS stepper which was attached to the TRUS stepper articulating arm which was secured to the bed was advanced into the rectum under direct vision via the ultrasound.? The ultrasound probe was then aligned and confirmation made that the prostate was centered and aligned in both the sagittal and transverse views.? The bladder neck, verumontanum, central and transitional zones were identified.? With the ultrasound in place and adjusted the patient was then draped in a sterile fashion. With the patient draped the 24 Danish aqua beam handpiece was then inserted through the urethra and advanced into the bladder.? Cystoscopy was then performed and no concerning bladder mass or lesions were noted.? Bilateral ureteral orifices were noted to be orthotopic in nature.? As the cystoscope was advanced the level of the sphincter, verumontanum, bladder neck were all identified via ultrasound and under direct vision.? The aqua beam hand place was then secured to the handpiece articulating arm which had been secured to the bed.? The Aquablation handpiece and TRUS probe were confirmed to be parallel and colinear.? Confirmation was then made that the aqua beam handpiece and nozzle was centered and anterior to the bladder neck.? The cystoscope was then retracted under direct vision in the sphincter and verumontanum were identified.? The tip of the cystoscope was then placed proximal to the external sphincter.? Compression was applied with the TRUS probe to the prostate.? The alignment of the TRUS probe and aqua beam handpiece was once again confirmed.? Horizontal alignment of the handpiece water jet was then performed.? With these adjustments made, the treatment zones were then planned using real-time ultrasou nd.? In the largest transverse view of the prostate the depth and radial angles were determined and set again in the transverse view of the prostate.? In the longitudinal and sagittal view the Aquablation nozzle was identified and its position registered with the software and robot.? The treatment contours were then determined and adjusted to reflect the intended margins of resection.? Following our plan confirmation, the Aquablation resection treatment was started.? A 2nd pass was then completed in similar fashion after the 1st pass had been completed.? At this point, the Aqua hand piece was removed from the urethra. The 26Fr resectoscope was then inserted into the urethra and cystoscopy was repeated.? The [employer] data center operator was utilized to evacuate the blood clots from the bladder.? He was noted to have a moderate sized stone within his prostatic urethra that was removed using the resectoscope. The bladder neck was then resected using the bipolar Gyrus loop.? Bilateral ureteral orifices were again identified and noted to be intact at case end.? Hemostasis was obtained and noted to be excellent at case end.? The resectoscope was then removed and a 24Fr Barney 3-way hematuria catheter was inserted through the urethra and into the bladder.? 45cc of sterile water was utilized for balloon insufflation.? Efflux was noted to be clear at case end.? Anesthesia was reversed, he was extubated in the OR and transferred to the PACU in stable condition for recovery. Complications: none Post-operative Condition: stable Disposition: PACU Plan for aftercare: Will continue to run CBI for a few hours to evaluate the efflux from his catheter.? Should it remain relatively clear and with minimal blood clots, will discharge home with catheter in place and have him return to Urology clinic in 2 days for a voiding trial.? Should his efflux remain red or have significant clot burden, will admit overnight for observation and continued CBI.
[2025-01-03] MEDS: PHENAZOPYRIDINE 100 MG TABLET 200 MG PO (10:14)
[2025-01-03] MEDS: OXYCODONE IR 5 MG TABLET PO (10:54)
[2025-01-03] MEDS: OXYBUTYNIN 5 MG TABLET PO (11:33)
--- NOTE | 2025-01-03 13:05 | SUR.PHASEII ---
Pt ready for discharge. Jain catheter teaching provided before and after procedure to patient and . Given supplies. States understanding. Ambulatory to and into private vehicle without difficulty
== END 2025-01-03 13:10 | disposition home or self-care (01) ==
PROVIDERS: PCP Internal Medicine; Referring Provider Urology; Visit Provider Urology
PROC: 0VT08ZZ Resection of Prostate, Via Natural or Artificial Opening Endoscopic (ICD-10-PCS; CPT 52597; principal; 2025-01-03 07:45)
DX: N40.1 Benign prostatic hyperplasia with lower urinary tract symptoms (principal); N13.8 Other obstructive and reflux uropathy; N21.0 Calculus in bladder; R35.0 Frequency of micturition; R35.1 Nocturia; R97.20 Elevated prostate specific antigen [PSA]
CPT/HCPCS: 0421T; 82365; C2596; J1100; J1956; J2405; J2704; J3010

== ENCOUNTER → 2025-01-05 14:30 | Outpatient (CLI) | payer MEDICARE, OTHER, SELFPAY ==
[2021-09-05 13:03] VITALS: BMI 28.5
== END ==
PROVIDERS: PCP Internal Medicine; Visit Provider Urology
DX: R31.0 Gross hematuria (principal); N40.1 Benign prostatic hyperplasia with lower urinary tract symptoms; N13.8 Other obstructive and reflux uropathy
CPT/HCPCS: 87086